=== PATIENT | male | born 1980 | race Caucasian/White ===

== ENCOUNTER 2022-01-20 14:00 | Inpatient (IN) | payer OTHER ==
[~2022-01-20] VITALS: Ht 172.7 cm; Wt 96.8 kg
[2022-01-20] MEDS ORDERED: SODIUM CHLORIDE 0.9% 1,000 ML IV ONE (14:15)
[2022-01-20] MEDS ORDERED: KETOROLAC TROMETHAMINE 30 MG/ML VIAL IVP ONE (14:15)
[2022-01-20] MEDS ORDERED: ASPI-1444 PO (14:23)
[2022-01-20] MEDS ORDERED: FINA-27 PO (14:23)
[2022-01-20] MEDS ORDERED: PROP10TA73 PO (14:23)
[2022-01-20] MEDS ORDERED: GABA-1181 PO (14:23)
[2022-01-20] MEDS ORDERED: TAMS-13 PO (14:23)
[2022-01-20] MEDS ORDERED: AMLO2.5T96 PO (14:23)
[2022-01-20] MEDS ORDERED: LISI-893 PO (14:23)
[2022-01-20] MEDS ORDERED: BUSP10TA23 PO (14:23)
[2022-01-20] MEDS ORDERED: HYDR25TA2 PO (14:23)
[2022-01-20] MEDS ORDERED: OMEP20 PO (14:23)
[2022-01-20] MEDS ORDERED: ONDANSETRON HCL 4 MG/2 ML VIAL IVP ONE (14:45)
[2022-01-20 14:55] LABS: BASOPHILS % (AUTO) 0.2 % (0.0-2.0); EOSINOPHILS % (AUTO) 0.1 % (1.0-6.0); HEMATOCRIT 42.5 % (41-53); HEMOGLOBIN 14.4 g/dL (13.5-17.5); LYMPHOCYTES # (AUTO) 1.1 K/uL (1.0-4.8); LYMPHOCYTES % (AUTO) 11.7 % (22.0-44.0); MEAN CORPUSCULAR HEMOGLOBIN 28.8 pg (26.0-34.0); MEAN CORPUSCULAR HGB CONC 33.8 G/dL (31.0-37.0); MEAN CORPUSCULAR VOLUME 85 fL (80-100); MONOCYTES # (AUTO) 0.5 K/uL (0.1-1.0); MONOCYTES % (AUTO) 5.5 % (2.0-9.0); NEUTROPHILS # (AUTO) 7.6 K/uL (1.8-7.7); NEUTROPHILS % (AUTO) 82.5 % (40.0-70.0); PLATELET COUNT (AUTO) 180 K/uL (150-450); RED BLOOD CELL COUNT(AUTO) 4.99 MIL/uL (4.50-5.90); RED CELL DISTRIBUTION WIDTH 13.6 % (11.5-14.5)
[2022-01-20 15:07] LABS: ANION GAP 7 mmol/L (8-16); CALCIUM, TOTAL 9.1 mg/dL (8.8-10.5); CARBON DIOXIDE 26 mmol/L (22-29); CHLORIDE 103 mmol/L (98-107); CREATININE 1.07 mg/dL (0.60-1.30); GLOMERULAR FILTR. RATE CALC > 60 mL/min (>60); GLUCOSE,RANDOM 126 mg/dL (70-110); POTASSIUM 4.5 mmol/L (3.5-5.1); SODIUM SERUM 136 mmol/L (136-145); UREA NITROGEN, BLOOD 20 mg/dL (7-18)
[2022-01-20 15:14] LABS: ALANINE AMINOTRANSFERASE 26 U/L (12-78); ALKALINE PHOSPHATASE 54 U/L (46-116); ASPARTATE AMINOTRANSFERASE 25 U/L (15-37); BILIRUBIN,TOTAL 0.6 mg/dL (0.1-1.0)
[2022-01-20 15:41] LABS: APPEARANCE,URINE CLEAR (CLEAR); BILIRUBIN,URINE NEGATIVE (NEGATIVE); GLUCOSE, URINE (UA) NEGATIVE (NEGATIVE); KETONES,URINE NEGATIVE (NEGATIVE); LEUKOCYTE ESTERASE ,URINE NEGATIVE (NEGATIVE); NITRATE,URINE NEGATIVE (NEGATIVE); OCCULT BLOOD,URINE TRACE (NEGATIVE); PH,URINE 6.5 (5.0-8.0); PROTEIN,URINE NEGATIVE (NEGATIVE); SPECIFIC GRAVITIY, URINE 1.022 (1.003-1.030); UROBILINOGEN,URINE <=1.0 mg/dL (<=1.0)
[2022-01-20 16:00] LABS: BACTERIA,URINE None Seen /HPF (None Seen); SQUAMOUS EPITHELIAL CELL,UR Few /LPF (None Seen); WBC,URINE 0-2 /HPF (0-5)
[2022-01-20] MEDS ORDERED: MORPHINE SULFATE 4 MG/ML SYRINGE IVP ONE (17:30)
[2022-01-20] MEDS ORDERED: TAMSULOSIN HCL 0.4 MG CAPSULE PO ONE (17:30)
[2022-01-20] MEDS ORDERED: ONDANSETRON HCL 4 MG/2 ML VIAL IVP PRN ×2 (19:30→20:00)
[2022-01-20] MEDS ORDERED: ACETAMINOPHEN 325 MG TABLET PO PRN (19:30)
[2022-01-20] MEDS ORDERED: 0.9% SODIUM CHLORIDE 10 ML SYRINGE IVP PRN (19:30)
[2022-01-20 20:20] VITALS: BP 130/90
[2022-01-20] MEDS: KETOROLAC TROMETHAMINE 15 MG/ML VIAL IVP PRN (20:55)
[2022-01-20] MEDS: RINGERS SOLUTION,LACTATED 1,000 ML IV SCH (20:56)
[2022-01-20 21:10] LABS: COVID AG,FIA SOURCE NASAL SWAB
[2022-01-21] MEDS: HEPARIN SODIUM,PORCINE 5,000 UNITS/ML VIAL SQ SCH ×4 (00:44→23:17)
[2022-01-21] MEDS: ACETAMINOPHEN 325 MG TABLET PO PRN ×2 (00:45→09:03)
[2022-01-21 03:30] VITALS: BP 143/91
[2022-01-21] MEDS: KETOROLAC TROMETHAMINE 15 MG/ML VIAL IVP PRN ×3 (03:40→22:15)
[2022-01-21 05:57] VITALS: BP 133/90
[2022-01-21] MEDS: RINGERS SOLUTION,LACTATED 1,000 ML IV SCH ×2 (05:57→16:26)
[2022-01-21 08:13] VITALS: BP 118/73
[2022-01-21] MEDS: PROPRANOLOL HCL 10 MG TABLET PO SCH ×3 (09:00→20:54)
[2022-01-21] MEDS: AmLODIPine BESYLATE 2.5 MG TABLET PO SCH (09:00)
[2022-01-21] MEDS: TAMSULOSIN HCL 0.4 MG CAPSULE PO SCH (09:00)
[2022-01-21] MEDS: ASPIRIN 81 MG DR TABLET PO SCH (09:00)
[2022-01-21] MEDS: BusPIRone HCL 10 MG TABLET PO SCH ×2 (09:00→20:54)
[2022-01-21] MEDS: OMEPRAZOLE 20 MG CAPSULE PO SCH (10:18)
[2022-01-21] MEDS: FINASTERIDE 5 MG TABLET PO SCH (10:18)
[2022-01-21] MEDS: LISINOPRIL 10 MG TABLET PO SCH (10:18)
[2022-01-21 16:05] VITALS: BP 122/89
[2022-01-21] MEDS: DOCUSATE SODIUM 100 MG CAPSULE PO PRN (16:18)
[2022-01-21 20:04] VITALS: BP 116/65
[2022-01-21] MEDS: GABAPENTIN 300 MG CAPSULE PO SCH (20:53)
[2022-01-22] MEDS: RINGERS SOLUTION,LACTATED 1,000 ML IV SCH ×3 (02:11→23:28)
[2022-01-22 04:35] VITALS: BP 119/76
[2022-01-22] MEDS: KETOROLAC TROMETHAMINE 15 MG/ML VIAL IVP PRN (06:08)
[2022-01-22] MEDS: ACETAMINOPHEN 325 MG TABLET PO PRN ×2 (06:42→10:44)
[2022-01-22] MEDS: HEPARIN SODIUM,PORCINE 5,000 UNITS/ML VIAL SQ SCH ×3 (08:00→23:28)
[2022-01-22 08:22] VITALS: BP 124/81
[2022-01-22] MEDS: PROPRANOLOL HCL 10 MG TABLET PO SCH ×2 (08:36→21:10)
[2022-01-22] MEDS: ASPIRIN 81 MG DR TABLET PO SCH (08:36)
[2022-01-22] MEDS: TAMSULOSIN HCL 0.4 MG CAPSULE PO SCH (08:37)
[2022-01-22] MEDS: OMEPRAZOLE 20 MG CAPSULE PO SCH (08:37)
[2022-01-22] MEDS: LISINOPRIL 10 MG TABLET PO SCH (08:37)
[2022-01-22] MEDS: FINASTERIDE 5 MG TABLET PO SCH (08:49)
[2022-01-22] MEDS: BusPIRone HCL 10 MG TABLET PO SCH ×2 (08:49→21:10)
[2022-01-22] MEDS: AmLODIPine BESYLATE 2.5 MG TABLET PO SCH (08:49)
[2022-01-22 13:44] LABS: BASOPHILS % (AUTO) 0.6 % (0.0-2.0); EOSINOPHILS % (AUTO) 0.1 % (1.0-6.0); HEMATOCRIT 38.9 % (41-53); HEMOGLOBIN 13.4 g/dL (13.5-17.5); LYMPHOCYTES # (AUTO) 1.3 K/uL (1.0-4.8); LYMPHOCYTES % (AUTO) 13.8 % (22.0-44.0); MEAN CORPUSCULAR HEMOGLOBIN 29.2 pg (26.0-34.0); MEAN CORPUSCULAR HGB CONC 34.4 G/dL (31.0-37.0); MEAN CORPUSCULAR VOLUME 85 fL (80-100); MONOCYTES # (AUTO) 1.4 K/uL (0.1-1.0); MONOCYTES % (AUTO) 14.9 % (2.0-9.0); NEUTROPHILS # (AUTO) 6.5 K/uL (1.8-7.7); NEUTROPHILS % (AUTO) 70.6 % (40.0-70.0); PLATELET COUNT (AUTO) 172 K/uL (150-450); RED BLOOD CELL COUNT(AUTO) 4.59 MIL/uL (4.50-5.90)
[2022-01-22 13:54] LABS: ANION GAP 3 mmol/L (8-16); CALCIUM, TOTAL 8.5 mg/dL (8.8-10.5); CARBON DIOXIDE 30 mmol/L (22-29); CHLORIDE 105 mmol/L (98-107); CREATININE 1.17 mg/dL (0.60-1.30); GLOMERULAR FILTR. RATE CALC > 60 mL/min (>60); GLUCOSE,RANDOM 115 mg/dL (70-110); POTASSIUM 4.1 mmol/L (3.5-5.1); SODIUM SERUM 138 mmol/L (136-145); UREA NITROGEN, BLOOD 12 mg/dL (7-18)
[2022-01-22 14:00] LABS: ALANINE AMINOTRANSFERASE 31 U/L (12-78); ALBUMIN 3.2 g/dL (3.4-5.0); ALKALINE PHOSPHATASE 62 U/L (46-116); ASPARTATE AMINOTRANSFERASE 32 U/L (15-37); BILIRUBIN,TOTAL 0.8 mg/dL (0.1-1.0); TOTAL PROTEIN, SERUM 7.2 g/dL (6.4-8.2)
[2022-01-22 16:50] VITALS: BP 123/78
[2022-01-22 19:40] VITALS: BP 123/77
[2022-01-22] MEDS: GABAPENTIN 300 MG CAPSULE PO SCH (21:10)
[2022-01-23 04:35] VITALS: BP 133/92
[2022-01-23] MEDS: KETOROLAC TROMETHAMINE 15 MG/ML VIAL IVP PRN (06:07)
[2022-01-23] MEDS: HEPARIN SODIUM,PORCINE 5,000 UNITS/ML VIAL SQ SCH ×2 (08:00→16:00)
[2022-01-23 08:11] LABS: BASOPHILS % (AUTO) 0.4 % (0.0-2.0); EOSINOPHILS % (AUTO) 1.4 % (1.0-6.0); HEMOGLOBIN 13.3 g/dL (13.5-17.5); LYMPHOCYTES # (AUTO) 2.4 K/uL (1.0-4.8); LYMPHOCYTES % (AUTO) 34.3 % (22.0-44.0); MEAN CORPUSCULAR HEMOGLOBIN 29.2 pg (26.0-34.0); MEAN CORPUSCULAR VOLUME 86 fL (80-100); MONOCYTES # (AUTO) 0.9 K/uL (0.1-1.0); MONOCYTES % (AUTO) 13.4 % (2.0-9.0); NEUTROPHILS # (AUTO) 3.6 K/uL (1.8-7.7); NEUTROPHILS % (AUTO) 50.5 % (40.0-70.0); PLATELET COUNT (AUTO) 163 K/uL (150-450); RED BLOOD CELL COUNT(AUTO) 4.55 MIL/uL (4.50-5.90)
[2022-01-23 08:25] LABS: ALANINE AMINOTRANSFERASE 33 U/L (12-78); ALBUMIN 3.1 g/dL (3.4-5.0); ALKALINE PHOSPHATASE 61 U/L (46-116); ANION GAP 4 mmol/L (8-16); ASPARTATE AMINOTRANSFERASE 23 U/L (15-37); BILIRUBIN,TOTAL 0.6 mg/dL (0.1-1.0); CALCIUM, TOTAL 8.4 mg/dL (8.8-10.5); CARBON DIOXIDE 30 mmol/L (22-29); CHLORIDE 104 mmol/L (98-107); CREATININE 0.91 mg/dL (0.60-1.30); GLOMERULAR FILTR. RATE CALC > 60 mL/min (>60); GLUCOSE,RANDOM 84 mg/dL (70-110); POTASSIUM 3.6 mmol/L (3.5-5.1); SODIUM SERUM 138 mmol/L (136-145); TOTAL PROTEIN, SERUM 7.3 g/dL (6.4-8.2); UREA NITROGEN, BLOOD 9 mg/dL (7-18)
[2022-01-23 08:34] VITALS: BP 131/82
[2022-01-23] MEDS: OMEPRAZOLE 20 MG CAPSULE PO SCH (08:46)
[2022-01-23] MEDS: FINASTERIDE 5 MG TABLET PO SCH (08:46)
[2022-01-23] MEDS: RINGERS SOLUTION,LACTATED 1,000 ML IV SCH ×2 (08:46→17:40)
[2022-01-23] MEDS: ASPIRIN 81 MG DR TABLET PO SCH (08:46)
[2022-01-23] MEDS: LISINOPRIL 10 MG TABLET PO SCH (08:46)
[2022-01-23] MEDS: PROPRANOLOL HCL 10 MG TABLET PO SCH ×2 (08:46→21:00)
[2022-01-23] MEDS: DOCUSATE SODIUM 100 MG CAPSULE PO PRN (08:52)
[2022-01-23] MEDS ORDERED: TAMSULOSIN HCL 0.4 MG CAPSULE PO SCH (09:00)
[2022-01-23] MEDS: BusPIRone HCL 10 MG TABLET PO SCH ×2 (09:00→21:00)
[2022-01-23] MEDS: AmLODIPine BESYLATE 2.5 MG TABLET PO SCH (09:00)
[2022-01-23] MEDS: TAMSULOSIN HCL 0.4 MG CAPSULE PO SCH (09:00)
[2022-01-23 16:51] VITALS: BP 117/81
[2022-01-23 20:25] VITALS: BP 126/66
[2022-01-23] MEDS: GABAPENTIN 300 MG CAPSULE PO SCH (21:00)
[2022-01-24 04:45] VITALS: BP 112/75
[2022-01-24] MEDS: RINGERS SOLUTION,LACTATED 1,000 ML IV SCH (05:25)
[2022-01-24 07:29] LABS: BASOPHILS % (AUTO) 0.7 % (0.0-2.0); EOSINOPHILS % (AUTO) 2.2 % (1.0-6.0); HEMATOCRIT 39.5 % (41-53); HEMOGLOBIN 13.5 g/dL (13.5-17.5); LYMPHOCYTES # (AUTO) 2.1 K/uL (1.0-4.8); LYMPHOCYTES % (AUTO) 34.5 % (22.0-44.0); MEAN CORPUSCULAR HEMOGLOBIN 29.1 pg (26.0-34.0); MEAN CORPUSCULAR HGB CONC 34.2 G/dL (31.0-37.0); MEAN CORPUSCULAR VOLUME 85 fL (80-100); MONOCYTES # (AUTO) 0.7 K/uL (0.1-1.0); MONOCYTES % (AUTO) 11.8 % (2.0-9.0); NEUTROPHILS # (AUTO) 3.2 K/uL (1.8-7.7); NEUTROPHILS % (AUTO) 50.8 % (40.0-70.0); PLATELET COUNT (AUTO) 173 K/uL (150-450); RED BLOOD CELL COUNT(AUTO) 4.65 MIL/uL (4.50-5.90)
[2022-01-24 07:32] VITALS: BP 133/84
[2022-01-24 07:44] LABS: ALANINE AMINOTRANSFERASE 37 U/L (12-78); ALBUMIN 3.1 g/dL (3.4-5.0); ALKALINE PHOSPHATASE 60 U/L (46-116); ANION GAP 7 mmol/L (8-16); ASPARTATE AMINOTRANSFERASE 27 U/L (15-37); BILIRUBIN,TOTAL 0.4 mg/dL (0.1-1.0); CALCIUM, TOTAL 8.5 mg/dL (8.8-10.5); CARBON DIOXIDE 28 mmol/L (22-29); CHLORIDE 103 mmol/L (98-107); CREATININE 0.89 mg/dL (0.60-1.30); GLOMERULAR FILTR. RATE CALC > 60 mL/min (>60); GLUCOSE,RANDOM 94 mg/dL (70-110); POTASSIUM 3.7 mmol/L (3.5-5.1); SODIUM SERUM 138 mmol/L (136-145); TOTAL PROTEIN, SERUM 7.3 g/dL (6.4-8.2); UREA NITROGEN, BLOOD 12 mg/dL (7-18)
[2022-01-24] MEDS: HEPARIN SODIUM,PORCINE 5,000 UNITS/ML VIAL SQ SCH ×2 (08:00)
[2022-01-24] MEDS: AmLODIPine BESYLATE 2.5 MG TABLET PO SCH (08:26)
[2022-01-24] MEDS: TAMSULOSIN HCL 0.4 MG CAPSULE PO SCH ×2 (08:26→08:31)
[2022-01-24] MEDS: FINASTERIDE 5 MG TABLET PO SCH (08:26)
[2022-01-24] MEDS: LISINOPRIL 10 MG TABLET PO SCH (08:26)
[2022-01-24] MEDS: ASPIRIN 81 MG DR TABLET PO SCH (08:27)
[2022-01-24] MEDS: BusPIRone HCL 10 MG TABLET PO SCH (08:27)
[2022-01-24] MEDS: PROPRANOLOL HCL 10 MG TABLET PO SCH ×2 (08:27→08:31)
[2022-01-24] MEDS: OMEPRAZOLE 20 MG CAPSULE PO SCH (08:27)
== END 2022-01-24 14:50 | DRG 694 ==
LOC: EMS 14:05 → 6S 18:39
PROVIDERS: ADMIT Internal Medicine; ATTEND Internal Medicine
DX: N13.2 Hydronephrosis with renal and ureteral calculous obstruction (principal); D47.2 Monoclonal gammopathy; K21.9 Gastro-esophageal reflux disease without esophagitis; I10 Essential (primary) hypertension; E66.9 Obesity, unspecified; Z20.822 Contact with and (suspected) exposure to COVID-19; N40.0 Benign prostatic hyperplasia without lower urinary tract symptoms; K44.9 Diaphragmatic hernia without obstruction or gangrene; Z68.31 Body mass index [BMI] 31.0-31.9, adult; Z87.442 Personal history of urinary calculi; Z79.899 Other long term (current) drug therapy
CPT/HCPCS: 74176; 76770; 80053; 81001; 82784; 84153; 85025; 99285; J1644; J1885; J2270; J2405; J7120